=== PATIENT | male | born 1975 | race Caucasian/White ===

== ENCOUNTER 2017-05-03 19:29 | Emergency (ER) | payer OTHER ==
[~2017-05-03 19:29] MED LIST: BP MEDICATION; IBUP-238 PO
--- NOTE | 2017-05-03 21:00 | PD ---
HPI Chief Complaint: psychiatric complaint Time Seen by Provider: 20:43 Travel History International Travel<30 days: No Contact w/Intl Traveler<30days: No History of Present Illness HPI 41-year-old male presents to the emergency Department under Jaime act by local placed. The patient states he has been having a rough time lately. He called the [place] crisis hotline. When they asked him if he had a gun, he told them that he did. However, he states he told them he was not suicidal. The patient states that he has side and going through a rough time, but denies any thoughts of hurting himself or anybody else. 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 The patient has a service dog at bedside. He appears calm and rational. He states he just needs someone to talk to, but denies any thoughts of hurting himself. The patient states he called this morning and the police showed up at [address] him under the Jaime act. Patient has no medical complaints at this time. PFSH Past Medical History Hypertension: Yes Social History Alcohol Use: Yes (RARE) Tobacco Use: No Substance Use: No Allergies-Medications (Allergen,Severity, Reaction): Coded Allergies: No Known Allergies (Verified Adverse Reaction, Unknown, 05/03/17) Reported Meds & Prescriptions Reported Meds & Active Scripts Active Motrin (Ibuprofen) 800 Mg Tab 800 Mg PO TID Reported [Bp Medication] Review of Systems Except as stated in HPI: all other systems reviewed are Neg Physical Exam Narrative GENERAL: Well-nourished, well-developed male patient, afebrile. SKIN: Focused skin assessment warm/dry. HEAD: Normocephalic. Atraumatic. EYES: No scleral icterus. No injection or drainage. NECK: Supple, trachea midline. No JVD or lymphadenopathy. CARDIOVASCULAR: Regular rate and rhythm without murmurs, gallops, or rubs. RESPIRATORY: Breath sounds equal bilaterally. No accessory muscle use. Lungs sounds are clear to auscultation. GASTROINTESTINAL: Abdomen soft, non-tender, nondistended. MUSCULOSKELETAL: No cyanosis, or edema. PSYCHIATRIC: No delusional thought processes. No hallucinations. Data Data Last Documented VS Vital Signs Date Time Temp Pulse Resp B/P (MAP) Pulse Ox O2 Delivery O2 Flow Rate FiO2 05/03/17 21:06 98.4 100 17 144/92 (109) 95 Orders Orders Ed Discharge Order (05/03/17 21:19) MDM Medical Decision Making Medical Screen Exam Complete: Yes Emergency Medical Condition: Yes Medical Record Reviewed: Yes Differential Diagnosis Depression versus anxiety versus medical clearance Narrative Course 41-year-old male presents to the emergency Department under Jaime act by local police. He denies any suicidal or homicidal ideations. Patient was seen by Mandi, psychiatric nurse practitioner and she lifted the Jaime act. Patient has no medical complaints. Patient will be discharged home. [facility] He is to return here for any worsening symptoms or any thoughts of hurting himself. He verbalizes agreement. Diagnosis Primary Impression: Depression Qualified Codes: F32.9 - Major depressive disorder, single episode, unspecified Referrals: Primary Care Physician call for appointment Additional Instructions: Follow-up with your primary care physician. Return to the emergency department for any acute worsening of symptoms. Med/Other Pt SpecificInfo: No Change to Meds Disposition: 01 DISCHARGE HOME Condition: Stable Sabiha Bolton May 03, 2017 21:00
[2017-05-03 21:06] VITALS: BP 144/92; PULSE 100; RESP 17; TEMP 98.4; O2SAT 95
--- NOTE | 2017-05-04 00:11 | PD ---
History of Present Illness Chief Complaint: Psychiatric Symptoms Time Seen by Provider: 19:45 Travel History International Travel<30 Days: No Contact w/Intl Traveler<30days: No Known affected area: No Legal Status Legal Status: Jaime Act Jaime Act Signed By: Zackery Bashir History of Present Illness: History of Present Illness HPI 41-year-old, single, male with history of PTSD who presents to the emergency Department under Jaime act initiated by [employer] [place]. The report alleges that the patient made suicidal statements via crisis hotline. During the contact with the crisis hotline subject stated he had a gun he might as well put a bullet in his mouth. The patient reports that he had been having a difficult time at work with his supervisor blood and he decided to call the crisis hot line to speak to someone about his difficulties. He states that he did not call because he was suicidal but that when he was asked if he had a weapon that he answered honestly. He states he has a concealed weapon license. He then tells me that he was asked if he were suicidal what he would do and once again he tells me that he answered honestly that he he would use his weapon. He goes on to tell me that he made the call at 11:00. He then went and have lunch with his fiance and completed his work day. When he arrived home at 5:00 the police were there and placed him under the Jaime act. Electronic medical record is reviewed. No previous contact with [facility] psychiatry Department. The patient is seen. He is alert, calm, cooperative and appears in no distress. His speech is clear, logical and goal-directed. There is no indication of any psychosis, no cristopher or hypomania. He admits to feeling anxious and overwhelmed time as well as experiencing symptoms of PTSD. He denies any suicidal or homicidal ideation, intent or plan. He is wanting to be involved in counseling services to help him improve his coping skills. He is also wanting to consider some medication but only after having tried the counseling. He denies any substance use. He gives me verbal permission to contact his fiance. I called his ficharis Palma at [phone]. The fijuan tells me that the patient has been struggling with symptoms of depression and anxiety but that she does not have any concerns that he is a risk to himself or to anyone else. She has, out of caution, taken the guns out of the home. She is willing to pick him up if he were to be discharge. She would like for him to receive psychiatric care. The patient states he has been having a rough time lately. He called the [place] crisis hotline. When they asked him if he had a gun, he told them that he did. However, he states he told them he was not suicidal. The patient states that he has side and going through a rough time, but denies any thoughts of hurting himself or anybody else. 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 The patient has a service dog at bedside. He appears calm and rational. He states he just needs someone to talk to, but denies any thoughts of hurting himself. The patient states he called this morning and the police showed up at [address] him under the Jaime act. Patient has no medical complaints at this time. PFSH Past Medical History Diminished Hearing: No Hypertension: Yes Musculoskeletal: Yes (CHRONIC BACK PAIN) Influenza Vaccination: No Past Surgical History Surgical History: No Previous Surgery Psychiatric History Psychiatric History Hx Psychiatric Treatment: None. He has had counseling through employee assistance program. No history of previous suicide attempt History of Inpatient Treatment: No Guns or firearms in home: Yes (sukh has secured the weapons.) Social History Single. Served in the [employer] with honorable discharge in 2005. He is currently living with his sukh. He has a 12-year-old daughter. He works at [employer] and their [employer]. Hx Alcohol Use: Yes (OCCASIONALLY) Hx Tobacco Use: No Hx Substance Use: No Hx of Substance Use Treatment: No Family Psychiatric History Negative Allergies-Medications (Allergen,Severity, Reaction): Coded Allergies: No Known Allergies (Verified Adverse Reaction, Unknown, 05/03/17) Reported Meds & Prescriptions Reported Meds & Active Scripts Active Motrin (Ibuprofen) 800 Mg Tab 800 Mg PO TID Reported [Bp Medication] Review of Systems Musculoskeletal: COMPLAINS OF: Back pain Mental Status Examination Appearance: Appropriate (casually and neatly dressed) Consciousness: Alert Orientation: x4 Motor Activity: Normal gait Speech: Unremarkable Language: Adequate Fund of Knowledge: Adequate Attention and Concentration: Adequate Memory: Unremarkable Mood: Appropriate Affect: Appropriate Thought Process & Associations: Intact, Logical, Goal directed Thought Content: Appropriate Hallucination Type: None Delusion Type: None Suicidal Ideation: No Suicidal Plan: No Suicidal Intention: No Homicidal Ideation: No Homicidal Plan: No Homicidal Intention: No Insight: Adequate Judgment: Adequate MDM Medical Decision Making Medical Record Reviewed: Yes Assessment/Plan 41-year-old male with history of PTSD, on no psychiatric medication, who was placed under Jaime act after he contacted a [employer] hotline. When he was asked if he had any weapons he answered that he did process or weapons. When asked if he ever thought of harming himself and what he would do, he reported that he will use his weapon. The patient denies that he said that he was suicidal. He continues to deny any suicidal or homicidal ideation, intent or plan. He is future oriented and tells me that he wants to get better and managing his stressors and is looking for help. He has adequate protective factors. Collateral information was obtained from the patient's fianc. The patient does not present evidence of unstable mental illness at this time. He is offered inpatient treatment for possible medication but he declined. I have no criteria to keep him under the Jaime act. He states that he will contact [facility], which is his insurance to see if he can be seen as an outpatient. He contracts for safety and as part of a general safety plan agrees to return to the emergency department if there are any changes. He is provided psychoeducation and support. At this time the Jaime act is lifted. Psychiatrically clear for discharge from the ED Orders Orders Ed Discharge Order (05/03/17 21:19) Results Vital Signs Date Time Temp Pulse Resp B/P (MAP) Pulse Ox O2 Delivery O2 Flow Rate FiO2 05/03/17 21:06 98.4 100 17 144/92 (109) 95 Diagnosis Primary Impression: PTSD (post-traumatic stress disorder) Ruled Out: Depression Psychiatrically Cleared: Yes Referrals: Primary Care Physician call for appointment Departure Forms: Tests/Procedures Patient Instructions: General Instructions, Depression (ED) Additional Instructions: Follow-up with your primary care physician. Return to the emergency department for any acute worsening of symptoms. Disposition: 01 DISCHARGE HOME Condition: Stable Mandi Bradshaw May 04, 2017 00:11
== END 2017-05-03 21:28 | disposition home or self-care (01) ==
LOC: NEDAMB 19:29
DX: F43.10 Post-traumatic stress disorder, unspecified (principal); I10 Essential (primary) hypertension; M54.9 Dorsalgia, unspecified; G89.29 Other chronic pain
CPT/HCPCS: 99284